=== PATIENT | female | born 1965 | race Asian ===

== ENCOUNTER 2018-06-26 09:31 | Day surgery (SDC) | payer BC ==
[2018-06-26] MEDS ORDERED: FENTAnyl 50 MCG/ML VIAL (12:09)
[2018-06-26] MEDS ORDERED: MIDAZOLAM 1 MG/ML 2 ML INJ (12:09)
== END 2018-06-26 13:45 | disposition home or self-care (01) ==
LOC: GIL 09:31
DX: Z12.11 Encounter for screening for malignant neoplasm of colon (principal); K64.8 Other hemorrhoids
CPT/HCPCS: 45378; 84703